=== PATIENT | female | born 1995 | race Caucasian/White ===

== ENCOUNTER 2018-03-06 00:35 | Outpatient (CLI) | payer MEDICAID, SELFPAY ==
--- NOTE | 2018-03-06 10:44 | DI.US_ITS ---
SYMPTOM/DIAGNOSIS: RT PALPABLE THICKENING, SKIN CHANGES RIGHT BREAST ULTRASOUND: The breast tissue appears acoustically normal. No cyst or mass is demonstrated. No skin abnormality is apparent. SUMMARY: Normal right breast ultrasound. SA ASSESSMENT OF FINDINGS: Negative. Category 1. Patient will receive a letter notifying them of these results.
== END 2018-03-06 00:55 ==
PROVIDERS: PCP Nurse Practitioner; Visit Provider Nurse Practitioner Adult Health
DX: N64.89 Other specified disorders of breast (principal)
CPT/HCPCS: 76642

== ENCOUNTER 2020-03-14 18:29 | Emergency (ER) | payer MEDICAID, SELFPAY ==
--- NOTE | 2020-03-14 18:30 | ED.GENADUL_ITS ---
Discharge Plan Disposition Patient Disposition: HOME Condition: Good Discharge Details Clinical Impression: Acute sore throat, Body aches Primary Care Provider: Marina Carlson ED Provider: Nat Rockwell Home Meds and New Rx's Prescriptions: Continued triamcinolone acetonide 0.1 % cream 1 applic TP BID PRN (Reason: LLE rash) Qty: 15 RF: 0 albuterol sulfate 90 mcg/actuation HFA aerosol inhaler 2 puff IH Q6H PRN (Reason: shortness of breath or wheezing) Qty: 18 RF: 0 Mirena 1 EACH intrauterine device 1 ea Intrauterine ONCE Qty: 1 RF: 0 fluticasone propionate 16 GM spray,suspension 2 spry NS DAILY 7 Days Qty: 1 RF: 3 methadone 10 mg tablet 38 mg PO DAILY RF: 0 methylphenidate HCl 10 mg tablet See Rx Instructions PO BID MDD 30mg Qty: 84 RF: 0 Discharge Instructions Instructions: Strep Throat (ED) Additional Instructions: Encourage water intake. Tylenol and ibuprofen as needed for discomfort. Stop smoking. Your COVID-19 testing is pending. You will need to quarantine until your results are back. We will call you with results. If you develop shortness of breath, difficulty breathing, inability to stay hydrated or other new/worsneing symptoms please seek care urgently once again. Follow up with primary care in 2 weeks if not improving. Stand Alone Forms: PENDING COVID-19 TESTING, Work Release Referrals: Marina Carlson, BANK VAULT ATTENDANT [Primary Care Provider] - Discharge Data Discharge Date/Time-TO BE ENTERED AT DEPARTURE: 03/14/20 19:15 Medical Decision Making Patient is 24-year-old female presents with chief complaint sore throat and body aches. Reports that she woke up this morning. Denies occasions of pain or shortness of breath. She denies any chest pain. No GI upset. Patient did drive back from [place] yesterday after visiting her father. Denies any known Covid exposure. Patient smokes. Past medical history includes obesity, ADD. On exam, patient appears nontoxic. She is status post tonsillectomy. No abnormalities in HEENT exam is noted. She appears well-hydrated. Lungs are clear. COVID-19 testing has been sent. Advised that she quarantine. Encourage water intake. Discussed [id number] medications at home remedies that may be of benefit to help with symptomatic management. Advise return precautions. She will follow-up with her primary care in 2 weeks if not completely improved. Advised that she will quarantine against her significant other who is in the same house with her. All of her questions and concerns were addressed and she is in agreement this plan. HPI General Mode of arrival: ambulatory . Date/Time Provider Initiated Documentation: 03/14/20 18:30 . Limitations to Documentation: no limitations . Information obtained by: patient and RN notes reviewed . History of Present Illness 24 year old F presents to the emergency department with the chief complaint of sore throat , described as moderate, with intensity rated at 6. Quality is described as burning, and is localized to the mouth. Patient reports no radiation. Patient started experiencing this day(s) (1) and it has been constant. No relieving factors improve symptom(s), No exacerbating factors reported . Patient notes no other symptoms.. Patient did receive the following treatments prior to arrival, none Related Data Home Medications Medication Instructions Recorded Confirmed Mirena 1 ea INTRAUTERINE ONCE #1 implant 07/05/17 10/05/19 fluticasone propionate 2 spry NS DAILY 7 Days #1 spray 07/05/17 10/05/19 albuterol sulfate 90 mcg/actuation 2 puff IH Q6H PRN #18 gm 01/22/19 10/05/19 aerosol inhaler methadone 10 mg tablet 38 mg PO DAILY tab 02/19/19 10/05/19 triamcinolone acetonide 0.1 % 1 applic TP BID PRN #15 gm 10/05/19 03/14/20 topical cream methylphenidate HCl 10 mg tablet See Rx Instructions PO BID #84 tab 12/22/19 03/14/20 MDD 30mg Previous Rx's Medication Instructions Recorded fluticasone propionate 2 spry NS DAILY 7 Days #1 spray 07/05/17 albuterol sulfate 90 mcg/actuation 2 puff IH Q6H PRN #18 gm 01/22/19 aerosol inhaler triamcinolone acetonide 0.1 % 1 applic TP BID PRN #15 gm 10/05/19 topical cream methylphenidate HCl 10 mg tablet See Rx Instructions PO BID #84 tab 12/22/19 MDD 30mg Allergies Allergy/AdvReac Type Severity Reaction Status Date / Time guanfacine AdvReac Severe anxiety Verified 03/14/20 18:49 Review of Systems Constitutional Constitutional: Reports as per HPI, Denies chills, Denies fever(s) and Denies headache(s) Eyes Eyes: Reports as per HPI, Denies eye discharge and Denies irritation ENT Ears, Nose, Mouth, and Throat: Reports as per HPI and Denies headache(s) Cardiovascular Cardiovascular: Reports as per HPI, Denies chest pain and Denies dyspnea Respiratory Respiratory: Reports as per HPI, Denies cough and Denies dyspnea Gastrointestinal Gastrointestinal: Reports as per HPI, Denies abdominal pain, Denies change in bowel habits, Denies nausea and Denies vomiting Integumentary/Breasts Skin/Breast: Reports as per HPI and Denies rash Neurologic Neurologic: Reports as per HPI and Denies headache(s) [facility] Medical History (Updated 03/14/20 @ 19:03 by PRAKASH Garcia) ADD (attention deficit disorder) Family history of diabetes mellitus Nicotine vapor product user Obesity Surgical History No pertinent past surgical history Family History (Updated 04/15/18 @ 10:05 by Melinda Llanes RN) Father No problems noted. Mother No problems noted. Brother Diabetes type 1 Depression Social History Smoking/Tobacco Use Status: Former Tobacco Use Smoking risk assessment performed?: Yes Substance use type: does not use Adopted: No Caregiver/Support person: No Foster care: No Household members: significant other Housing: apartment Seatbelt use: always Drive intox or ride w/intox otr hazmat company driver: No Working smoke detector in home: Yes Carbon monox detector in home: Yes Firearms in home: No Do you feel safe in your relationship?: Yes Exam Const General: cooperative, healthy appearing, comfortable, no acute distress, well developed and well groomed Nutritional Appearance: well nourished and obese Orientation: alert and awake [facility] Head: normal to inspection, normocephalic and atraumatic Ears: hearing grossly normal bilaterally, external ears normal and TM's normal bilaterally General nose exam: external nose normal and nares normal Face and sinus: normal facial exam, sinuses nontender and face symmetric Mouth: oral mucosae normal, lip normal, tongue normal, oropharynx normal and moist mucous membranes Teeth and gingiva: dentition normal Throat: posterior oropharynx normal, tonsils normal and uvula midline Eyes General: appearance normal, both eyes and all related structures Neck Neck: normal visual inspection, full ROM, no lymphadenopathy and no meningeal signs Resp Effort & Inspection: normal respiratory effort, able to speak in complete sentences and no respiratory distress Auscultation: clear to auscultation bilaterally, no rales, no rhonchi and no wheezes Cardio Rate: regular rate Rhythm: regular rhythm Heart Sounds: S1 normal and S2 normal Skin General skin exam: no rashes or lesions noted Neuro General: patient alert and patient awake Cognition: normal cognition Speech: speech normal Gait: normal gait Psych Appearance: grossly normal and well kempt Mental Status: mental status grossly normal Speech and Movement: speech and movement normal
[2020-03-14 18:44] VITALS: BP 141/82; PULSE 83; RESP 16; TEMP 36.2; O2SAT 98
[2020-03-14 19:49] VITALS: BP 141/82; PULSE 83; RESP 16; TEMP 36.2; O2SAT 98
[2020-03-16 10:36] LABS: COVID-19 RT-PCR UVMMC Result Negative (Negative)
--- NOTE | 2020-03-16 17:37 | NUR.NOTE ---
called and left message to call for testing results. 03/16/2020 @ 1736. TB, RN
--- NOTE | 2020-03-19 08:06 | NUR.NOTE ---
Nursing [id number] notification--No Answer.te:
--- NOTE | 2020-03-20 09:13 | NUR.NOTE ---
Nursing Note: attempted to call pt @ 5948- no answer. VM left. Has been attempted since 03/16/20 multiple times.
--- NOTE | 2020-03-20 09:21 | NUR.NOTE ---
Nursing Note: Reached out to mother, listed in pt's demographics as next of kin at 0920. Asked to convey to pt to call back to [phone]. No specific results given to mother.
--- NOTE | 2020-03-20 12:03 | NUR.NOTE ---
Nursing Note: Negative result given over the phone after identity confirmed at 1203.
== END 2020-03-14 19:15 | disposition home or self-care (01) ==
PROVIDERS: Emergency Provider Physician Assistant; PCP Nurse Practitioner
DX: M79.10 Myalgia, unspecified site (principal); J02.9 Acute pharyngitis, unspecified; F17.210 Nicotine dependence, cigarettes, uncomplicated; Z03.818 Encounter for observation for suspected exposure to other biological agents ruled out
CPT/HCPCS: 99282; U0003; 99283

== ENCOUNTER 2020-03-22 04:17 | Outpatient (CLI) | payer MEDICAID, SELFPAY ==
[2020-03-26 03:12] LABS: Patient Race White; SARS-CoV-2 RNA Undetected (Undetected); SARS-CoV-2 Specimen Source Nasal
== END 2020-03-22 04:37 ==
PROVIDERS: PCP Nurse Practitioner; Visit Provider Nurse Practitioner
DX: J20.9 Acute bronchitis, unspecified (principal)
CPT/HCPCS: U0003

== ENCOUNTER 2020-03-28 16:32 | Outpatient (REF) | payer MEDICAID, SELFPAY ==
--- NOTE | 2020-03-28 14:30 | ENDO_PTH ---
PATIENT: Brandi Murry LOC: [facility] U#:[id number] AGE/SX: 24/F ROOM: RE03/28/[address]: Addy Palm MD : 1995 BED: DIS: 03/28/2020 SPEC #: [id number] RECD: 03/28/20 18:02 STATUS: LITZY REJosef #: [id number] ERICA: 03/28/20 14:[address]: Addy Palm DEPT: Surgical Specimen RECD BY: Rena Pollack ENTERED: 03/28/20 18:02 SP TYPE: Endo OTHR DR: Marina Carlson APRN Tissues: 1 - ENDOCERVICAL BX/CURRETTE Procedures: GROSS AND MICRO LEVEL 4 Comments: [id number]
== END 2020-03-28 16:52 ==
LOC: LBN 16:32
PROVIDERS: PCP Nurse Practitioner; Visit Provider Obstetrics & Gynecology
DX: N88.8 Other specified noninflammatory disorders of cervix uteri (principal); R87.612 Low grade squamous intraepithelial lesion on cytologic smear of cervix (LGSIL)
CPT/HCPCS: 88305

== ENCOUNTER 2021-01-19 11:35 | Emergency (ER) | payer MEDICAID, SELFPAY ==
[2021-01-19 11:41] VITALS: BP 127/84; PULSE 82; RESP 18; TEMP 36.9; O2SAT 100
--- NOTE | 2021-01-19 12:04 | ED.GENADUL_ITS ---
Discharge Plan Disposition Patient Disposition: HOME Condition: Stable Discharge Details Clinical Impression: Diarrhea Primary Care Provider: Marina Carlson ED Provider: Ayush Garsia Home Meds and New Rx's Prescriptions: Continued albuterol sulfate 90 mcg/actuation HFA aerosol inhaler 2 puff IH Q6H PRN (Reason: shortness of breath or wheezing) Qty: 18 RF: 0 valacyclovir 500 mg tablet 500 mg PO DAILY Qty: 90 RF: 3 Mirena 1 EACH intrauterine device 1 ea Intrauterine ONCE Qty: 1 RF: 0 fluticasone propionate 16 GM spray,suspension 2 spry NS DAILY 7 Days Qty: 1 RF: 3 methadone 10 mg tablet 60 mg PO DAILY RF: 0 bupropion HCl [Wellbutrin XL] 300 mg tablet extended release 24 hr 300 mg PO QAM Qty: 90 RF: 3 methylphenidate HCl 20 mg tablet 20 mg PO TID MDD 60mg Qty: 36 RF: 0 Discharge Instructions Additional Instructions: if you feel more ill, have shortness of breath or persistent vomit reutrn to the emergency department Stand Alone Forms: PENDING COVID-19 TESTING Medical Decision Making 25 yo female comes in stating she needs a covid test. She had to miss work at the [employer] yesterday due to a diarrheal illness that has resolved. She has no symptoms now, no fevers, chills, abdomen pain, cough or shortness of breath. Is speaking in full sentences in no distress. Suspect she had gastroenteritis given brevity of symptoms vs food illness but will obtain covid test. REturn precautions given Differential Diagnosis Differential Diagnosis: food illness, gastroenteritis HPI General Mode of arrival: ambulatory . Date/Time Provider Initiated Documentation: 01/19/21 11:54 . Limitations to Documentation: no limitations . Information obtained by: patient . History of Present Illness 25 year old F presents to the emergency department with the chief complaint of I need a covid test to go back to work, Patient started experiencing this day(s) (1) and it has been constant. No relieving factors improve symptom(s), No exacerbating factors reported . Patient notes no other symptoms.. Patient did receive the following treatments prior to arrival, none Related Data Home Medications Medication Instructions Recorded Confirmed Mirena 1 ea INTRAUTERINE ONCE #1 implant 07/05/17 01/19/21 fluticasone propionate 2 spry NS DAILY 7 Days #1 spray 07/05/17 01/19/21 albuterol sulfate 90 mcg/actuation 2 puff IH Q6H PRN #18 gm 01/22/19 01/19/21 aerosol inhaler valacyclovir 500 mg tablet 500 mg PO DAILY #90 tab 03/17/20 01/19/21 methadone 10 mg tablet 60 mg PO DAILY tab 03/28/20 01/19/21 bupropion HCl 300 mg 24 hr tablet, 300 mg PO QAM #90 tab 07/18/20 01/19/21 extended release methylphenidate HCl 20 mg tablet 20 mg PO TID #36 tab MDD 60mg 01/16/21 01/19/21 Previous Rx's Medication Instructions Recorded fluticasone propionate 2 spry NS DAILY 7 Days #1 spray 07/05/17 albuterol sulfate 90 mcg/actuation 2 puff IH Q6H PRN #18 gm 01/22/19 aerosol inhaler valacyclovir 500 mg tablet 500 mg PO DAILY #90 tab 03/17/20 bupropion HCl 300 mg 24 hr tablet, 300 mg PO QAM #90 tab 07/18/20 extended release methylphenidate HCl 20 mg tablet 20 mg PO TID #36 tab MDD 60mg 01/16/21 Allergies Allergy/AdvReac Type Severity Reaction Status Date / Time guanfacine AdvReac Severe anxiety Verified 01/16/21 10:34 General Stated Complaint: Nausea/Vomit/Diar YESENIA: 3 Review of Systems All systems reviewed & are unremarkable except as noted in HPI and below Constitutional Constitutional: Denies chills, Denies fever(s) and Denies weakness Cardiovascular Cardiovascular: Denies chest pain and Denies dyspnea Respiratory Respiratory: Denies cough and Denies dyspnea Gastrointestinal Gastrointestinal: Denies abdominal pain, Denies nausea and Denies vomiting Musculoskeletal Musculoskeletal: Denies joint swelling Neurologic Neurologic: Denies weakness [facility] Medical History (Updated 01/19/21 @ 12:09 by Ayush Garsia MD) Abnormal Pap smear of cervix ADD (attention deficit disorder) Depression Family history of diabetes mellitus Nicotine vapor product user Obesity Opioid dependence on agonist therapy Surgical History No pertinent past surgical history Family History (Updated 04/15/18 @ 10:05 by Melinda Llanes RN) Father No problems noted. Mother No problems noted. Brother Diabetes type 1 Depression Social History (Updated 04/27/20 @ 14:43 by Tomasa Luog LPN) Smoking/Tobacco Use Status: Former Tobacco Use Smokeless tobacco user: other Quit status: considering quitting Smoking risk assessment performed?: Yes Alcohol Intake: former Drug use: Occasionally Substance use type: marijuana Adopted: No Caregiver/Support person: No Foster care: No Household members: significant other Housing: apartment Seatbelt use: always Drive intox or ride w/intox delivery driver/supervisor: No Working smoke detector in home: Yes Carbon monox detector in home: Yes Firearms in home: No Do you feel safe at home: Yes Do you feel safe in your relationship?: Yes Exam Const General: no acute distress Orientation: alert [facility] Head: normal to inspection Ears: external ears normal General nose exam: external nose normal Mouth: moist mucous membranes Eyes General: appearance normal, both eyes and all related structures Neck Neck: normal visual inspection Resp Effort & Inspection: normal respiratory effort and able to speak in complete sentences Cardio Rate: regular rate GI Palpation: soft and nontender Skin General skin exam: no rashes or lesions noted Neuro General: patient alert and patient oriented x3 Extrem General: normal to inspection Psych Mental Status: mental status grossly normal Course Vital Signs Vital signs: Vital Signs Temperature 36.9 C 01/19/21 11:41 Pulse 82 01/19/21 11:41 Respiratory Rate 18 01/19/21 11:41 Blood Pressure 127/84 01/19/21 11:41 Pulse Oximetry 100 01/19/21 11:41 Temperature 36.9 C 01/19/21 11:41 Temperature Source Temporal Artery Scan 01/19/21 11:41 Pulse 82 01/19/21 11:41 Respiratory Rate 18 01/19/21 11:41 Respiratory Effort Non-Labored 01/19/21 11:48 Blood Pressure 127/84 01/19/21 11:41 Blood Pressure Position Sitting 01/19/21 11:41 Pulse Oximetry 100 01/19/21 11:41 Oxygen Delivery Method Room Air 01/19/21 11:41 Oxygen Flow Rate 0 01/19/21 11:41
[2021-01-20 16:37] LABS: COVID-19 RT-PCR UVMMC Result Negative (Negative)
--- NOTE | 2021-01-21 07:38 | NUR.NOTE ---
Message nleft to call er forn test rewslt.Nursing Note:
--- NOTE | 2021-01-31 18:33 | NUR.NOTE ---
negative covid result left on answering machine.Nursing Note:
== END 2021-01-19 12:21 | disposition home or self-care (01) ==
PROVIDERS: Emergency Provider Emergency Medicine; PCP Nurse Practitioner
DX: R19.7 Diarrhea, unspecified (principal); Z20.822 Contact with and (suspected) exposure to COVID-19; Z03.818 Encounter for observation for suspected exposure to other biological agents ruled out
CPT/HCPCS: 99282; U0003

== ENCOUNTER 2021-10-26 13:59 | Emergency (ER) | payer MEDICAID, SELFPAY ==
[2021-10-26 14:34] VITALS: BP 134/82; PULSE 92; RESP 14; TEMP 37.3; O2SAT 100
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
[2021-10-26 15:03] VITALS: PULSE 73; RESP 14; O2SAT 97
== END 2021-10-26 15:04 | disposition home or self-care (01) ==
PROVIDERS: Emergency Provider Nurse Practitioner Family; PCP Nurse Practitioner
DX: L02.426 Furuncle of left lower limb (principal)
CPT/HCPCS: 99282

== ENCOUNTER 2022-05-31 14:17 | Outpatient (CLI) | payer MEDICAID, SELFPAY | END 2022-05-31 14:18 | disposition home or self-care (01) | LOC: DI.KIM 14:19 | PROVIDERS: PCP Nurse Practitioner; Visit Provider Nurse Practitioner | CPT/HCPCS: 93010 ==

== ENCOUNTER 2022-08-21 19:07 | Emergency (ER) | payer MEDICAID, SELFPAY ==
[2022-08-21 19:28] VITALS: BP 130/82; PULSE 100; RESP 19; TEMP 37.1; O2SAT 99
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
[2022-08-21] MEDS: Sulfameth/Trimeth DS, 2 TABS/BTL 1 TAB PO (20:26)
[2022-08-21] MEDS: Sulfameth/Trimeth DS TAB 1 TAB PO (20:26)
== END 2022-08-21 20:37 | disposition home or self-care (01) ==
PROVIDERS: Emergency Provider Registered Nurse Emergency; PCP Nurse Practitioner
DX: L03.113 Cellulitis of right upper limb (principal); L03.114 Cellulitis of left upper limb
CPT/HCPCS: 99283

== ENCOUNTER 2022-09-06 14:58 | Outpatient (REF) | payer MEDICAID, SELFPAY ==
[2022-09-08 04:58] LABS: Benzoylecgonine 428 ng/mL (Cutoff: 50); Cocaine 327 ng/mL (Cutoff: 50); Cocaine Interpretation Positive.
== END 2022-09-06 14:59 | disposition home or self-care (01) ==
LOC: LBN 14:58
PROVIDERS: PCP Nurse Practitioner; Referring Provider Nurse Practitioner; Visit Provider Nurse Practitioner
DX: F98.8 Other specified behavioral and emotional disorders with onset usually occurring in childhood and adolescence (principal); R82.5 Elevated urine levels of drugs, medicaments and biological substances
CPT/HCPCS: 80353

== ENCOUNTER 2022-09-20 11:34 | Outpatient (CLI) | payer MEDICAID, SELFPAY ==
[2022-09-20 12:33] LABS: ALT 18 U/L (14-59); AST 5 U/L (15-37); Albumin 3.7 g/dL (3.4-5.0); Alkaline Phosphatase 79 U/L (46-116); BUN 11 mg/dL (7-18); Bilirubin, Direct 0.1 mg/dL (0.0-0.2); Bilirubin, Total 0.2 mg/dL (0.2-1.0); Calcium 8.6 mg/dL (8.5-10.1); Chloride 103 mmol/L (98-107); Glucose 101 mg/dL (74-106); Magnesium 2.1 mg/dL (1.8-2.4); Sodium 140 mmol/L (136-145)
[2022-09-20 13:11] LABS: FREE T4 0.79 ng/dL (0.76-1.46)
[2022-09-25 11:23] LABS: Benzoylecgonine 652 ng/mL (Cutoff: 50); Cocaine Negative ng/mL (Cutoff: 50); Cocaine Interpretation Positive.
== END 2022-09-20 11:35 | disposition home or self-care (01) ==
LOC: LBO 11:35
PROVIDERS: PCP Nurse Practitioner; Visit Provider Student in an Organized Health Care Education/Training Program
DX: E86.0 Dehydration (principal); E87.20 Acidosis, unspecified; E87.8 Other disorders of electrolyte and fluid balance, not elsewhere classified; F41.9 Anxiety disorder, unspecified; Z51.81 Encounter for therapeutic drug level monitoring
CPT/HCPCS: 36415; 80048; 80076; 80353; 82520; 83735; 84439; 84443

== ENCOUNTER 2023-01-02 17:10 | Outpatient (REF) | payer MEDICAID, SELFPAY ==
[2023-01-08 03:54] LABS: Benzoylecgonine 252 ng/mL (Cutoff: 50); Cocaine 206 ng/mL (Cutoff: 50); Cocaine Interpretation Positive.
== END 2023-01-02 17:11 | disposition home or self-care (01) ==
LOC: LBN 17:10
PROVIDERS: PCP Nurse Practitioner; Visit Provider Nurse Practitioner
DX: R82.5 Elevated urine levels of drugs, medicaments and biological substances (principal)
CPT/HCPCS: 80353